=== PATIENT | female | born 1965 | race American Indian/Alaskan Native ===

== ENCOUNTER 2017-11-02 13:20 | Outpatient (CLI) | payer OTHER ==
[2017-11-02] MEDS ORDERED: PROVENTIL IH ONE (14:06)
== END 2017-11-02 13:21 | disposition home or self-care (01) ==
LOC: PF 13:20
PROVIDERS: ATTEND Internal Medicine
DX: J44.9 Chronic obstructive pulmonary disease, unspecified (principal); F31.9 Bipolar disorder, unspecified; F17.210 Nicotine dependence, cigarettes, uncomplicated
CPT/HCPCS: 94060

== ENCOUNTER 2021-06-17 10:36 | Emergency (ER) | payer MEDICARE, OTHER ==
[2021-06-17] MEDS ORDERED: ASPIRIN 325 MG TAB PO ONE (10:46)
--- NOTE | 2021-06-17 10:49 | Emergency Department Report ---
ED General Adult HPI - General Chief complaint: Chest Pain Stated complaint: CHEST PAIN Time Seen by Provider: 06/17/21 10:43 Source: patient Mode of arrival: Ambulatory Limitations: No Limitations - History of Present Illness Initial comments: Patient is a 55-year-old female presents emergency room with complaints of shortness of breath that began this morning. Patient states that she is also having pleuritic pain. She states that she has pain under her left shoulder blade that wraps around to her left chest. She states her pain is worse with mo vement, coughing, taking deep breath. She denies any fever, nausea, vomiting, diaphoresis, leg swelling, calf pain, hemoptysis. She denies any recent travel, recent immobilization, recent surgery. Past medical history of COPD. No allergies to medications. She is still a current smoker. She denies any family cardiac history. No allergies to medications. - Related Data Previous Rx's Medication Instructions Recorded Last Taken Type Albuterol Sulfate [Proventil Hfa] 1 - 2 puff IH TID PRN #1 hfa.aer.ad 06/17/21 Unknown Rx Naproxen 375 mg PO BID PRN #14 tablet 06/17/21 Unknown Rx methOCARBAMOL [Robaxin TAB] 500 mg PO BID PRN #14 tab 06/17/21 Unknown Rx Allergies Allergy/AdvReac Type Severity Reaction Status Date / Time No Known Allergies Allergy Verified 06/17/21 10:37 ED Review of Systems ROS: Stated complaint: CHEST PAIN Other details as noted in HPI Comment: All other systems reviewed and negative ED Past Medical Hx - Past Medical History Previous Medical History?: No - Surgical History Additional Surgical History: C SECTION - Medications Home Medications: Home Medications Medication Instructions Recorded Confirmed Last Taken Type Albuterol Sulfate [Proventil Hfa] 1 - 2 puff IH TID PRN #1 hfa.aer.ad 06/17/21 Unknown Rx Naproxen 375 mg PO BID PRN #14 tablet 06/17/21 Unknown Rx methOCARBAMOL [Robaxin TAB] 500 mg PO BID PRN #14 tab 06/17/21 Unknown Rx ED Physical Exam - General Limitations: No Limitations General appearance: alert, in no apparent distress - Head Head exam: Present: atraumatic, normocephalic - Eye Eye exam: Present: normal appearance - ENT ENT exam: Present: mucous membranes moist - Respiratory Respiratory exam: Present: normal lung sounds bilaterally, chest wall tenderness (reproducible left lateral chest wall ttp, no crepitus, no deformity, no rashes ). Absent: respiratory distress, wheezes, rales, rhonchi, stridor, accessory muscle use, decreased breath sounds, prolonged expiratory - Cardiovascular Cardiovascular Exam: Present: regular rate, normal rhythm, normal heart sounds. Absent: systolic murmur, diastolic murmur, rubs, gallop - Neurological Exam Neurological exam: Present: alert, oriented X3 - Psychiatric Psychiatric exam: Present: normal affect, normal mood - Skin Skin exam: Present: warm, dry, intact ED Course Vital Signs 06/17/21 06/17/21 06/17/21 10:42 13:40 14:53 Temperature 98.2 F Pulse Rate 86 Respiratory 20 18 Rate Blood Pressure 136/81 Blood Pressure [Right] O2 Sat by Pulse 99 99 Oximetry 06/17/21 15:28 Temperature Pulse Rate 81 Respiratory 18 Rate Blood Pressure Blood Pressure 130/89 [Right] O2 Sat by Pulse 99 Oximetry ED Medical Decision Making - Lab Data Result diagrams: 06/17/21 11:14 06/17/21 11:14 Lab Results 06/17/21 06/17/21 06/17/21 Range/Units 11:14 11:14 11:14 WBC 6.7 (4.5-11.0) K/mm3 RBC 4.66 (3.65-5.03) M/mm3 Hgb 13.8 (10.1-14.3) gm/dl Hct 43.7 H (30.3-42.9) % MCV 94 (79-97) fl MCH 30 (28-32) pg MCHC 32 (30-34) % RDW 14.2 (13.2-15.2) % Plt Count 292 (140-440) K/mm3 Lymph % (Auto) 41.2 H (13.4-35.0) % Larue % (Auto) 7.8 H (0.0-7.3) % Eos % (Auto) 1.2 (0.0-4.3) % Baso % (Auto) 1.1 (0.0-1.8) % Lymph # (Auto) 2.8 (1.2-5.4) K/mm3 Larue # (Auto) 0.5 (0.0-0.8) K/mm3 Eos # (Auto) 0.1 (0.0-0.4) K/mm3 Baso # (Auto) 0.1 (0.0-0.1) K/mm3 Seg Neutrophils % 48.7 (40.0-70.0) % Seg Neutrophils # 3.3 (1.8-7.7) K/mm3 D-Dimer 291.39 H (0-234) ng/mlDDU Sodium 140 (137-145) mmol/L Potassium 4.2 (3.6-5.0) mmol/L Chloride 104.9 (98-107) mmol/L Carbon Dioxide 22 (22-30) mmol/L Anion Gap 17 mmol/L BUN 12 (7-17) mg/dL Creatinine 0.8 (0.6-1.2) mg/dL Estimated GFR > 60 ml/min BUN/Creatinine Ratio 15 % Glucose 88 (65-100) mg/dL Calcium 9.7 (8.4-10.2) mg/dL Total Bilirubin 0.30 (0.1-1.2) mg/dL AST 17 (5-40) units/L ALT 16 (7-56) units/L Alkaline Phosphatase 109 (35-129) units/L Troponin T < 0.010 (0.00-0.029) ng/mL NT-Pro-B Natriuret Pep (0-900) pg/mL Total Protein 7.8 (6.3-8.2) g/dL Albumin 4.4 (3.9-5) g/dL Albumin/Globulin Ratio 1.3 % 06/17/21 06/17/21 Range/Units 11:14 13:55 WBC (4.5-11.0) K/mm3 RBC (3.65-5.03) M/mm3 Hgb (10.1-14.3) gm/dl Hct (30.3-42.9) % MCV (79-97) fl MCH (28-32) pg MCHC (30-34) % RDW (13.2-15.2) % Plt Count (140-440) K/mm3 Lymph % (Auto) (13.4-35.0) % Larue % (Auto) (0.0-7.3) % Eos % (Auto) (0.0-4.3) % Baso % (Auto) (0.0-1.8) % Lymph # (Auto) (1.2-5.4) K/mm3 Larue # (Auto) (0.0-0.8) K/mm3 Eos # (Auto) (0.0-0.4) K/mm3 Baso # (Auto) (0.0-0.1) K/mm3 Seg Neutrophils % (40.0-70.0) % Seg Neutrophils # (1.8-7.7) K/mm3 D-Dimer (0-234) ng/mlDDU Sodium (137-145) mmol/L Potassium (3.6-5.0) mmol/L Chloride (98-107) mmol/L Carbon Dioxide (22-30) mmol/L Anion Gap mmol/L BUN (7-17) mg/dL Creatinine (0.6-1.2) mg/dL Estimated GFR ml/min BUN/Creatinine Ratio % Glucose (65-100) mg/dL Calcium (8.4-10.2) mg/dL Total Bilirubin (0.1-1.2) mg/dL AST (5-40) units/L ALT (7-56) units/L Alkaline Phosphatase (35-129) units/L Troponin T < 0.010 (0.00-0.029) ng/mL NT-Pro-B Natriuret Pep 36.45 (0-900) pg/mL Total Protein (6.3-8.2) g/dL Albumin (3.9-5) g/dL Albumin/Globulin Ratio % - EKG Data EKG shows normal: sinus rhythm, axis, intervals, QRS complexes, ST-T waves Rate: normal - Radiology Data Radiology results: report reviewed Ordering Physician: LAURA SONI Date of Service: 06/17/21 Procedure(s): XR chest routine 2V Accession Number(s): [id number] cc: LAURA SONI Fluoro Time In Minutes: XR chest routine 2V INDICATION / CLINICAL INFORMATION: Chest Pain COMPARISON: None available. FINDINGS: SUPPORT DEVICES: None. HEART / MEDIASTINUM: No significant abnormality. LUNGS / PLEURA: Parenchymal opacity underlying the right horizontal fissure is thought to be atelectasis and/or scarring. Costophrenic sulci are sharp. No pneumothorax. ADDITIONAL FINDINGS: No significant additional findings. IMPRESSION: 1. No acute findings. Parenchymal opacity underlying the right horizontal fissure could be atelectasis and/or scarring. Can obtaining a short-term follow-up radiograph to ensure appropriate evolution. Signer Name: Bakari Haynes MD Signed: 06/17/2021 11:18 AM Workstation Name: [id number] Transcribed By: CS Dictated By: Bakari Haynes MD Electronically Authenticated By: Bakari Haynes MD Signed Date/Time: 06/17/21 1118 DD/ 1117 TD/TT: Print Ordering Physician: LAURA SONI Date of Service: 06/17/21 Procedure(s): CT angio chest Accession Number(s): [id number] cc: LAURA SONI CTA CHEST WITH CONTRAST INDICATION : SOB, CP, pleuritic pain, elevated d-dimer OMNI 350 100 ML. TECHNIQUE: Axial imaging performed through the chest, with contrast bolus timing set to maximize opacification of the pulmonary arteries. Sagittal and coronal reformatted i mages. 3-plane MIP reformatted images were obtained. All CT scans at this location are performed u sing CT dose reduction for ALARA by means of automated exposure control. 100 mL of intravenous contrast administered. COMPARISON: None FINDINGS: Bolus: Contrast bolus timing is adequate. PTE: No filling defect is present to suggest PTE. Mediastinum: Heart and great vessels appear normal. No pathologic mediastinal adenopathy. Lungs: Moderate to severe centrilobular and paraseptal emphysematous changes are identified in the upper lung zones. No suspicious pulmonary lesion, infiltrate, pleural effusion or pneumothorax. Bones: No significant abnormality. Upper abdomen: Limited imaging of the upper abdomen shows nothing acute. IMPRESSION: No evidence for pulmonary embolus. Emphysematous changes. Signer Name: Tyrone Saxena Jr, MD Signed: 06/17/2021 1:20 PM Workstation Name: [id number] Transcribed By: TTR Dictated By: TYRONE SAXENA JR, MD Electronically Authenticated By: TYRONE SAXENA JR, MD Signed Date/Time: 06/17/21 1320 DD/ 1318 TD/TT: - Medical Decision Making Patient is a 55-year-old female presents emergency room with complaints of shortness of breath that began this morning. Patient states that she is also having pleuritic pain. She states that she has pain under her left shoulder blade that wraps around to her left chest. She states her pain is worse with movement, coughing, taking deep breath. She denies any fever, nausea, vomiting, diaphoresis, leg swelling, calf pain, hemoptysis. She denies any recent travel, recent immobilization, recent surgery. Past medical history of COPD. No allergies to medications. She is still a current smoker. She denies any family cardiac history. No allergies to medications. Vitals are stable. Labs significant for mildly elevated D-dimer. Troponin is negative x2. EKG is within normal limits. Chest x-ray 1. No acute findings. Parenchymal opacity underlying the right horizontal fissure could be atelectasis and/or scarring. Can obtaining a short-term follow-up radiograph to ensure appropriate evolution. CT angio chest No evidence for pulmonary embolus. Emphysematous changes. Patient given medication on the emergency department with improvement of her symptoms. Discussed all results with patient answer questions. Heart score is 2, low risk for cardiac event, do not suspect ACS. Patient be referred to primary care and outpatient cardiology. Discussed smoking cessation with patient. Advised patient Take medication as prescribed. Follow-up with your primary care doctor. Follow-up with a programmer developer. Return to emergency room for any new or worsening symptoms. Critical care attestation.: If time is entered above; I have spent that time in minutes in the direct care of this critically ill patient, excluding procedure time. ED Disposition Clinical Impression: SOB (shortness of breath), Tobacco abuse Chest pain Qualifiers: Chest pain type: unspecified Qualified Code(s): R07.9 - Chest pain, unspecified Emphysema of lung Qualifiers: Emphysema type: unspecified Qualified Code(s): J43.9 - Emphysema, unspecified Disposition: 01 HOME / SELF CARE / HOMELESS Is pt being admited?: No Does the pt Need Aspirin: No Condition: Stable Instructions: Chronic Obstructive Pulmonary Disease, Nonspecific Chest Pain, A dult, Chronic Obstructive Pulmonary Disease (ED) Additional Instructions: Take medication as prescribed. Follow-up with your primary care doctor. Follow-up with a programmer developer. Return to emergency room for any new or worsening symptoms. Prescriptions: Naproxen 375 mg PO BID PRN #14 tablet PRN Reason: pain Albuterol Sulfate [Proventil Hfa] 1 - 2 puff IH TID PRN #1 hfa.aer.ad PRN Reason: wheezing/shortness of breath methOCARBAMOL [Robaxin TAB] 500 mg PO BID PRN #14 tab PRN Reason: muscle spasm/pain Referrals: PRIMARY CARE, [Primary Care Provider] - 2-3 Days FANNY MILLER MD [Staff Physician] - 2-3 Days Forms: Work/School Release Form(ED) Time of Disposition: 15:02 Print Language: ETHIOPIAN HEART Score - HEART Score History: Slightly suspicious EKG: Normal Age: 45-65 Risk factors: 1-2 risk factors Troponin: Troponin T < 0.010 ng/mL (0.00-0.029) 06/17/21 13:55 Troponin: < normal limit HEART Score: 2
--- NOTE | 2021-06-17 11:22 | XRay Report ---
XR chest routine 2V INDICATION / CLINICAL INFORMATION: Chest Pain COMPARISON: None available. FINDINGS: SUPPORT DEVICES: None. HEART / MEDIASTINUM: No significant abnormality. LUNGS / PLEURA: Parenchymal opacity underlying the right horizontal fissure is thought to be atelecta sis and/or scarring. Costophrenic sulci are sharp. No pneumothorax. ADDITIONAL FINDINGS: No significant additional findings. IMPRESSION: 1. No acute findings. Parenchymal opacity underlying the right horizontal fissure could be atelectasi s and/or scarring. Can obtaining a short-term follow-up radiograph to ensure appropriate evolution. Signer Name: Bakari Haynes MD Signed: 06/17/2021 11:18 AM Workstation Name: [id number]
[2021-06-17 11:53] LABS: Basophils # (Auto) 0.1 K/mm3 (0.0-0.1); Basophils % (Auto) 1.1 % (0.0-1.8); Eosinophils # (Auto) 0.1 K/mm3 (0.0-0.4); Eosinophils % (Auto) 1.2 % (0.0-4.3); Hematocrit 43.7 % (30.3-42.9); Hemoglobin 13.8 gm/dl (10.1-14.3); Lymphocytes # (Auto) 2.8 K/mm3 (1.2-5.4); Lymphocytes % (Auto) 41.2 % (13.4-35.0); Mean Corpuscular HGB Conc 32 % (30-34); Mean Corpuscular Volume 94 fl (79-97); Monocytes # (Auto) 0.5 K/mm3 (0.0-0.8); Monocytes % (Auto) 7.8 % (0.0-7.3); Platelet Count 292 K/mm3 (140-440); Red Blood Count 4.66 M/mm3 (3.65-5.03); Red Cell Distribution Width 14.2 % (13.2-15.2)
[2021-06-17 12:44] LABS: Alanine Aminotransferase 16 units/L (7-56); Albumin 4.4 g/dL (3.9-5); BUN/Creatinine Ratio 15; Blood Urea Nitrogen 12 mg/dL (7-17); Calcium 9.7 mg/dL (8.4-10.2); Hemolysis Index 3
--- NOTE | 2021-06-17 13:24 | Cat Scan Report ---
CTA CHEST WITH CONTRAST INDICATION : SOB, CP, pleuritic pain, elevated d-dimer OMNI 350 100 ML. TECHNIQUE: Axial imaging performed through the chest, with contrast bolus timing set to maximize opa cification of the pulmonary arteries. Sagittal and coronal reformatted images. 3-plane MIP reformatte d images were obtained. All CT scans at this location are performed using CT dose reduction for ALAR A by means of automated exposure control. 100 mL of intravenous contrast administered. COMPARISON: None FINDINGS: Bolus: Contrast bolus timing is adequate. PTE: No filling defect is present to suggest PTE. Mediastinum: Heart and great vessels appear normal. No pathologic mediastinal adenopathy. Lungs: Moderate to severe centrilobular and paraseptal emphysematous changes are identified in the u pper lung zones. No suspicious pulmonary lesion, infiltrate, pleural effusion or pneumothorax. Bones: No significant abnormality. Upper abdomen: Limited imaging of the upper abdomen shows nothing acute. IMPRESSION: No evidence for pulmonary embolus. Emphysematous changes. Signer Name: Tyrone Saxena Jr, MD Signed: 06/17/2021 1:20 PM Workstation Name: [id number]
[2021-06-17] MEDS ORDERED: oxyCODONE /ACETAMINOPHEN 5-325MG TAB PO ONE (14:46)
[2021-06-17 15:31] VITALS: BP 130/89
--- NOTE | 2021-06-18 11:13 | Electrocardiograph Report ---
[facility] Test Date: 2021-06-17 Test Time: 10:57:09 Pat Name: DANITA PERALTA Department: Room: Gender: F Conference Planning Manager: haider : 1965 Requested By: LIZY YAP Order Number: [id number] Reading MD: Mario Pop Measurements Intervals [place] Rate: 80 P: 68 NV: 169 QRS: 54 QRSD: 81 T: 64 QT: 378 QTc: 435 Interpretive Statements Sinus rhythm No previous ECG available for comparison Electronically Signed On 06-18-2021 11:13:08 EST by Mario Pop
== END 2021-06-17 15:31 | disposition home or self-care (01) ==
LOC: ED 10:36
DX: J43.9 Emphysema, unspecified (principal); F17.200 Nicotine dependence, unspecified, uncomplicated; Z98.890 Other specified postprocedural states
CPT/HCPCS: 36415; 71046; 71275; 80053; 83880; 84484; 85025; 85379; 93005; 99284; Q9967